=== PATIENT | female | born 1955 | race Caucasian/White ===

== ENCOUNTER 2021-08-01 21:17 | Emergency (ER) | payer MEDICARE, OTHER, SELFPAY ==
--- NOTE | ~2021-08-01 | XR_ITS ---
EXAMINATION: XR CHEST CLINICAL INFORMATION: Rib pain COMPARISON: None TECHNIQUE: Frontal view of the chest was obtained. FINDINGS: Normal symmetric lung volumes. No parenchymal consolidation. No pleural effusion. No pneumothorax. Cardiomediastinal silhouette and pulmonary vascularity are within normal limits. No acute osseous abnormalities. XR/XR chest 1V IMPRESSION: Unremarkable examination.
[2021-08-01 21:56] VITALS: BP 156/62; PULSE 66; RESP 16; O2SAT 97; BMI 39.2
--- NOTE | 2021-08-01 23:37 | ED.GENADULT ---
HPI - General Adult General Chief complaint: General Medical Stated complaint: Rib pain Time Seen by Provider: 08/01/21 23:37 Source: patient Mode of arrival: ambulatory Limitations: no limitations History of Present Illness HPI narrative: 66-year-old female is here today for complaining of right rib pain. Patient reports that she was trying to reach for her cobbler upper while she was in her van and she hurt her right rib area against arm rest. Patient reports pain with deep breathing and coughing. Denies any other symptoms. Onset (ago): hour(s) Location: chest (Right rib) Radiation: non-radiation Related Data Previous Rx's Medication Instructions Recorded ibuprofen 600 mg tablet 600 mg PO Q8H PRN #20 tab 08/01/21 Allergies Allergy/AdvReac Type Severity Reaction Status Date / Time No Known Allergies Allergy Verified 08/01/21 21:55 Review of Systems Review of Systems: Constitutional : No Weight loss, No Fever, No Chills, No Night Sweats, No Fatigue, No Malaise ENT/Mouth : No Hearing loss, No Ear Pain, No Nasal Congestion, No Sinus Pain, No Hoarseness, No sore throat, No Rhinorrhea, No Swallowing Difficulty Eyes: No Eye Pain, No Swelling, No Redness, No Foreign Body, No Discharge, No Vision Changes Cardiovascular : No Chest Pain, No SOB, No Dyspnea on Exertion, No Orthopnea, No Edema, No Palpitations Respiratory : No Cough, No Sputum, No Wheezing, No Smoke Exposure, No Dyspnea Gastrointestinal : No Nausea, No Vomiting, No Diarrhea, No Constipation, No abdominal Pain, No Hematochezia, No Melena Genitourinary : no irregular bleeding, No Dysuria, No Urinary Frequency, No Hematuria, No Urinary Incontinence, No Urgency, No Flank Pain, No Urinary Flow Changes, No Hesitancy Musculoskeletal : No joint pain, Myalgias, No Joint Swelling Skin : No Skin Lesions, No rash Neuro : No Weakness, No Numbness, No Paresthesias, No Loss of Consciousness, No Dizziness, No Headache Yes all other systems are reviewed and are negative FOR[facility], [facility] Past Medical History Medical History (Updated 08/02/21 @ 00:02 by Ivone Carcamo) Diabetes Hyperlipemia Hypertension Surgical History (Updated 08/01/21 @ 21:59 by Kendra Diehl) H/O knee surgery Social History Social History Advance Directives: No Advance Directives Information Provided: No Physical Exam Vital Signs: Vital Signs: Last Vital Signs Pulse 66 08/01/21 21:56 Resp 16 08/01/21 21:56 BP 156/62 H 08/01/21 21:56 Pulse Ox 97 08/01/21 21:56 Body Mass Index 39.2 Const: General: healthy appearing, no acute distress and well developed Nutritional Appearance: well nourished Orientation/consciousness: patient oriented x3 Neck: Neck: Yes normal visual inspection, Yes full ROM and Yes trachea midline Thyroid: Thyroid normal Chest: Other: Right lower rib tenderness Resp: Auscultation: clear to auscultation bilaterally Cardio: Rate: regular rate Rhythm: regular rhythm GI: Inspection: Yes normal to inspection and No distended Palpation (GI): No hepatosplenomegaly present Auscultation: normal bowel sounds : General: Yes no CVA tenderness Back/Spine/Pelvis: Back: no CVA tenderness Cervical Spine: normal cervical lordosis and pain with cervical ROM Thoracic/Lumbar Spine: thoracic and lumbar spine normal to inspection Pelvis: no pain with anterior-posterior compression Skin: General skin exam: elasticity normal, turgor normal and dry skin Neuro: General: patient oriented x3 Course Course Course Narrative: 66-year-old female is here today for complaining of right rib pain. Patient reports that she was sitting in her then and was trying to reach of 0 for her phone cobbler upper and as she leaned over she pressed her ribs again arm rest. She reports pain with deep inspiration and coughing. Denies any other symptoms. Reevaluation(s) Reevaluation #1: Chest x-ray negative for any acute processes. Will discharge her home with ibuprofen. Patient was instructed to wear loose clothing and not to wear bra for the next couple days. She is agreeable to plan of care and verbalizes understanding of instruction Medical Decision Making Imaging Data Chest x-ray: Radiologist's impression: FINDINGS: Normal symmetric lung volumes. No parenchymal consolidation. No pleural effusion. No pneumothorax.? Cardiomediastinal silhouette and pulmonary vascularity are within normal limits. No acute osseous abnormalities. Discharge Plan Discharge Clinical Impression: Rib pain on right side Patient Disposition: Home, Self-Care Instructions: Rib Contusion (ED) Additional Instructions: You were seen here today for complaining of right-sided rib pain, injury. Your chest x-ray is negative for any fracture. The most likely sustained a contusion. Please apply ice for the next 3 days. You may use nonsteroidal anti-inflammatory medication to help with pain. You may return to emergency department if your symptoms will get worse or if you will experience any additional concerning symptoms. Prescriptions: New ibuprofen 600 mg tablet 600 mg PO Q8H PRN (Reason: pain) Qty: 20 RF: 0 Referrals: Darian Persaud MD [Primary Care Provider] - 2 days Stand Alone Forms: Work/School Release Interventions: ED Discharge Assessment Last Done: 08/01/21 23:47 Discharge Date/Time: 08/01/21 23:48
[2021-08-01] MEDS: Ibuprofen 600 MG TABLET PO (23:44)
== END 2021-08-01 23:48 | disposition home or self-care (01) ==
PROVIDERS: Emergency Provider Internal Medicine; PCP Internal Medicine
DX: R07.81 Pleurodynia (principal)
CPT/HCPCS: 71045; 99283; 99284

== ENCOUNTER 2024-10-05 13:44 | Emergency (ER) | payer BC, MEDICARE, SELFPAY ==
--- NOTE | ~2024-10-05 | XR_ITS ---
EXAMINATION: XR HIP, RIGHT CLINICAL INFORMATION: Pain. COMPARISON: None available. TECHNIQUE: Two views of the right hip. FINDINGS: No acute fracture or dislocation. 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 SI joints are symmetric. Pubic symphysis and pelvic rim are maintained. No significant soft tissue abnormality. XR/XR hip RT w PEL1V IMPRESSION: No acute fracture or dislocation. 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 Electronically signed by: Susy Tom MD 10/05/2024 05:28 PM [facility]
--- NOTE | ~2024-10-05 | XR_ITS ---
EXAMINATION: XR LUMBOSACRAL SPINE CLINICAL INFORMATION: Pain. COMPARISON: None available. TECHNIQUE: Three views of the lumbosacral spine. FINDINGS: Left apical curvature of the upper lumbar spine. Mild age indeterminate vertebral body height loss at T11 and T12. Trace retrolisthesis of L2 on L3, most likely degenerative in nature. Moderate multilevel intervertebral disc height loss. Small multilevel anterior marginal osteophytes. Moderate facet arthropathy at L4-L5 leading to certain degree of neural foraminal encroachment. Symmetric SI joints. No significant paraspinal soft tissue abnormality. Scattered atherosclerotic disease. XR/XR lumbar spine 2-3V IMPRESSION: 1. Age indeterminate mild vertebral body height loss at T11 and T12. Correlate for point tenderness. 2. Moderate lumbar spondylosis. 3. Left apical curvature of the upper lumbar spine. Electronically signed by: Susy Tom MD 10/05/2024 05:32 PM [facility]
[2024-10-05 14:37] VITALS: BP 129/55; PULSE 71; RESP 16; TEMP 36.7; O2SAT 95; BMI 39.6
--- NOTE | 2024-10-05 14:42 | ED_ITS ---
HPI - General Adult General Chief complaint: Back Pain/Injury Stated complaint: Back pain Time Seen by Provider: 10/05/24 17:00 Source: patient, RN notes reviewed and old records reviewed Mode of arrival: ambulatory History of Present Illness ED Provider: Teresa Billy PA-C HPI narrative: 69-year-old female with a past medical history HTN, diabetes, HLD, presenting to the ED complaining of right-sided low back pain, nonradiating, x few weeks s/p twisting wrong/jumping up from bed when startled. Denies direct injury/trauma or fall. States he has been trying ibuprofen/Tylenol at home without relief. Denies numbness, tingling, weakness, incontinence/retention, fever/chills, dysuria/hematuria, abdominal pain Related Data Previous Rx's ?Medication ?Instructions ?Recorded ibuprofen 600 mg tablet 600 mg PO Q8H PRN pain #20 tabs 08/01/21 acetaminophen 500 mg tablet 500 mg PO Q6H PRN fever or pain 10/05/24 (Tylenol Extra Strength) #14 tabs cyclobenzaprine 5 mg tablet 5 mg PO Q8H PRN pain (scale score 10/05/24 7-10) 5 days #14 tabs lidocaine 5 % topical patch 1 patch topical DAILY PRN pain #30 10/05/24 (Lidoderm) ea naproxen 500 mg tablet 500 mg PO BID PRN pain 10 days #20 10/05/24 tabs Allergies Allergy/AdvReac Type Severity Reaction Status Date / Time No Known Allergies Allergy Verified 10/05/24 14:45 Review of Systems Review of Systems: Yes all other systems are reviewed and are negative Constitutional: Constitutional: Reports as per [facility] Past Medical History Attestation statement: The following information was validated with the patient. Source: old records reviewed Medical History Hyperlipemia Diabetes Hypertension Surgical History H/O knee surgery Social History Social History Advance Directives: No Advance Directives Information Provided: Yes Physical Exam ED Vital Signs: Vital Signs - 24 hr 10/05/24 14:37 10/05/24 17:54 11/07/24 18:27 Temperature 98.1 F 98.4 F Pulse Rate 71 70 70 Respiratory Rate 16 16 16 Blood Pressure 129/55 L 122/78 122/78 Pulse Oximetry 95 95 95 Oxygen Delivery Method Room Air Room Air Room Air BMI result Body Mass Index 39.6 Const General: cooperative, healthy appearing and no acute distress Orientation/consciousness: patient oriented x3 Limitations: no limitations HENMT Head: Yes normal to inspection and Yes atraumatic Ears: hearing grossly normal bilaterally General nose exam: Normal external nose present Face and sinus: Yes normal facial exam Eyes General: appearance normal, both eyes and all related structures EOM: EOMs intact bilaterally Neck Neck: Yes normal visual inspection and Yes no meningeal signs Resp Effort & Inspection: normal respiratory effort and no respiratory distress Cardio Rate: regular rate Back/Spine/Pelvis Other: No midline cervical/thoracic/lumbar spinous tenderness/step-off or deformity. + right lower lumbar MSK reproducible tenderness to palpation. No erythema/ecchymosis. No rash. Skin Rashes: no rashes Wounds: no wounds Neuro Other: Strength intact throughout. No saddle anesthesia. Sensation intact to light touch. Neurovascular intact distally General: patient oriented x3, gait normal, tone normal, moves all extremities and no meningeal signs Cranial nerves: Yes CN's II-XII intact bilaterally Gait exam (Neuro): Normal gait present Extrem General: Yes normal to inspection Course Course Course Narrative: This is an RME: Additional HPI, ROS, PE not included below will be deferred to primary provider. RME assessment and note performed by: Natalia Orozco PA-C This is a 54-[id number]-female, with a history of diabetes, hypertension and hyperlipidemia, who presents to the ER with complaints of right sided back pain. Patient states that while she was sleeping several weeks ago she was startled by thunder which caused her to jump from her bed. She states that she immediately had pain in her right side of her back. Patient has been trying pnvu-[id number] medications without any relief. She has tenderness palpation along the right low back overlying the SI joint region. No urinary symptoms. No red flag back symptoms. Plan: xrays XR hip RT w PEL1V IMPRESSION: No acute fracture or dislocation. 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 XR lumbar spine 2-3V IMPRESSION: 1. Age indeterminate mild vertebral body height loss at T11 and T12. Correlate for point tenderness. 2. Moderate lumbar spondylosis. 3. Left apical curvature of the upper lumbar spine. > no appreciable point tenderness. Results discussed with patient including worrisome signs and symptoms and strict return precautions, and when to return to the emergency department. They verbalized understanding and feel safe for discharge at this time. Medications Administered Discontinued Medications Generic Name Dose Route Start Last Admin Trade Name Freq PRN Reason Stop Dose Admin Cyclobenzaprine HCl 10 mg 10/05/24 17:45 10/05/24 17:51 Cyclobenzaprine Hcl 10 Mg Tablet PO 10/05/24 17:46 10 mg ONCE ONE Administration Ketorolac Tromethamine 30 mg 10/05/24 17:45 10/05/24 17:51 Ketorolac Tromethamine 30 Mg/Ml Vial IM 10/05/24 17:46 30 mg ONCE ONE Administration Lidocaine 1 patch 10/05/24 17:45 10/05/24 17:51 Lidocaine 4 % Patch Adh..Patch TRANSDERMA 10/05/24 17:46 1 patch ONCE ONE Administration Protocol Medical Decision Making Medical Decision Making MDM Narrative: 69-year-old female with a past medical history HTN, diabetes, HLD, presenting to the ED complaining of right-sided low back pain, nonradiating, x few weeks s/p twisting wrong/jumping up from bed when startled. On exam vital signs stable, NAD, nontoxic appearing, physical exam as noted above with reproducible MSK tenderness. No midline spinous tenderness or red flag symptoms. Ambulating wit h steady gait. Concern for MSK pain/strain. Lower suspicion for cauda equina, cord compression, epidural abscess, fracture, renal stone or pyelo Plan: Pain control, x-rays ordered in triage Please refer to course for remaining clinical decision making, interpretation of labs/imaging results, and discussions with consultants and/or family members. Differential Diagnosis Differential Diagnoses: The differential diagnosis associated with the presentation includes As above Independent Interpretation I performed an independent interpretation of an: Plain X-Ray Radiology Impression Discussion of test interpretation with radiology: I have reviewed the radiologist's reading. External Record Review External record reviewed: Inpatient record, Office record, Outpatient record, Prior outpatient labs, Prior outpatient radiology, Primary care record and Outside ED record Tests considered The following testing was considered but not selected: As above Prescription Management I considered prescription management with: Pain Medication Social Determinants Patient?s care significantly limited by Social Determinants of Health including: Other Social Determinant of Health Discharge Plan Discharge Clinical Impression: Hip osteoarthritis, Lumbar spondylosis Patient Disposition: Home, Self-Care Instructions: Osteoarthritis (DC), Acute Low Back Pain (ED) Additional Instructions: Your x-ray shows osteoarthritis of both hips. Also shows age indeterminate vertebral body height loss at T11 and T12 Please follow-up with your primary care doctor Your pain is likely musculoskeletal Flexeril is a muscle relaxer, take at night as it makes you drowsy, do not drive, drink alcohol, or operate machinery while taking it Naproxen as an anti-inflammatory / pain medication, take with food Lidoderm patches are numbing patches, apply to painful area In addition take Tylenol at home If symptoms persist or worsen, pain becomes unbearable, you developed urinary retention or incontinence, or weakness return to the ED Prescriptions: New lidocaine [Lidoderm] 5 % adhesive patch,medicated 1 patch topical DAILY MDD remove after 12 hours PRN (Reason: pain) Qty: 30 0RF Rx Instructions: leave on most painful area for up to 12 hrs cyclobenzaprine 5 mg tablet 5 mg PO Q8H PRN (Reason: pain (scale score 7-10)) 5 Days Qty: 14 0RF acetaminophen [Tylenol Extra Strength] 500 mg tablet 500 mg PO Q6H PRN (Reason: fever or pain) Qty: 14 0RF naproxen 500 mg tablet 500 mg PO BID PRN (Reason: pain) 10 Days Qty: 20 0RF No Action ibuprofen 600 mg tablet 600 mg PO Q8H PRN (Reason: pain) Qty: 20 0RF Referrals: [facility] [Provider Group] Darian Persaud III, MD [Primary Care Provider] - 3 days Interventions: ED Discharge Assessment Last Done: 10/05/24 18:27 Discharge Date/Time: 10/05/24 18:28 Print Language: Tamazight
[2024-10-05] MEDS: Ketorolac Tromethamine 30 MG/ML VIAL IM (17:51)
[2024-10-05] MEDS: Lidocaine 4 % Patch ADH..PATCH 1 PATCH TRANSDERMA (17:51)
[2024-10-05] MEDS: Cyclobenzaprine HCl 10 MG TABLET PO (17:51)
[2024-10-05 17:54] VITALS: BP 122/78; PULSE 70; RESP 16; O2SAT 95
[2024-10-05 18:27] VITALS: BP 122/78; PULSE 70; RESP 16; TEMP 36.9; O2SAT 95
== END 2024-10-05 18:28 | disposition home or self-care (01) ==
PROVIDERS: Emergency Provider Emergency Medicine; PCP Internal Medicine
DX: M16.0 Bilateral primary osteoarthritis of hip (principal); M47.896 Other spondylosis, lumbar region; M54.50 Low back pain, unspecified; I10 Essential (primary) hypertension; Z79.899 Other long term (current) drug therapy
CPT/HCPCS: 72100; 73502; 96372; 99283; 99284; J1885